=== PATIENT | female | born 2000 | race Two or more races ===

== ENCOUNTER 2024-10-10 15:10 | Emergency (ER) | payer MEDICAID, SELFPAY ==
[2024-10-10 15:12] VITALS: BMI 36.6
[2024-10-10 15:19] VITALS: BP 141/79; PULSE 82; RESP 18; TEMP 37.1; O2SAT 97
--- NOTE | 2024-10-10 15:24 | XR_ITS ---
Examination: CT abdomen with intravenous contrast CT pelvis with intravenous contrast 2-D coronal reconstructions 2-D sagittal reconstructions Date and time of exam:October 10, 2024 1813 hours INDICATIONS: Right lower abdominal pain beginning 2 days ago. CTDI: vol (mGy) 14.8 DLP: (mGycm) 822 Technique: Multiple axial sections of the abdomen and pelvis have been obtained. 64 slice high-resolution scanner used. 3 mm axial sections have been obtained, post intravenous injection 60 cc [id number] 2-D sagittal, coronal reconstructions obtained. Low dose protocols were performed. One or more of the following dose reduction techniques were used; automated exposure control, adjustment of the mA and/or KV according to patient size, use of iterative reconstruction technique. Findings: No focal liver or splenic lesion No gallstones No renal or ureteral calculi, no hydronephrosis Aorta normal size Normal appendix, coronal image 62 No pericecal inflammatory change Mild free fluid in the pelvis with partially involuting 23 mm adnexal cyst Urinary bladder minimal wall thickening No obstruction IMPRESSION: Normal appendix Mild free fluid in the pelvis with partially involuting 23 mm left adnexal cyst, recommend pelvic sonography follow-up
--- NOTE | 2024-10-10 15:24 | PD.EDRME ---
Rapid Medical Screening Exam RME Arrival date/time: 10/10/24 15:10 23-year-old female presents emergency department complaint of abdominal pain patient for she was sent here by PCP to rule out appendicitis Chief Complaint: Abdominal Pain Vital signs: Vital Signs Temperature 98.7 F 10/10/24 15:19 Pulse Rate 82 10/10/24 15:19 Respiratory Rate 18 10/10/24 15:19 Blood Pressure 141/79 H 10/10/24 15:19 Pulse Oximetry (%) 97 10/10/24 15:19 Oxygen Delivery Method Room Air 10/10/24 15:19
[2024-10-10 16:02] LABS: Basophils # (Auto) 0.1 Thou/mm3 (0.0-0.2); Basophils % (Auto) 1 % (0-2.5); Eosinophils # (Auto) 0.1 Thou/mm3 (0.0-0.5); Eosinophils % (Auto) 1 % (0-10); Hematocrit 38.4 % (36.0-46.0); Hemoglobin 12.8 g/dL (12.0-16.0); Immature Granulocytes % (Auto) 0 % (0-0); Immature Granulocytes Auto 0.03 Thou/mm3 (0.00-0.00); Lymphocytes # (Auto) 2.5 Thou/mm3 (1.0-4.8); Lymphocytes % (Auto) 23 % (10-50); Mean Corpuscular HGB Conc 33.3 g/dl (31.0-37.0); Mean Corpuscular Hemoglobin 28.1 pg (25.0-35.0); Mean Corpuscular Volume 84 fL (80-100); Monocytes # (Auto) 0.6 Thou/mm3 (0.0-0.8); Monocytes % (Auto) 5 % (0-12); Neutrophils # (Auto) 7.5 Thou/mm3 (1.8-7.7); Neutrophils % (Auto) 70 % (37-80); Nucleated Red Blood Cell % 0 /100 WBC (0); Platelet Count 256 Thou/mm3 (140-440); RDW Standard Deviation 39.8 fL (36.4-46.3); Red Blood Count 4.56 Miln/mm3 (4.00-5.20); White Blood Count 10.7 Thou/mm3 (3.6-11.0)
[2024-10-10 16:17] LABS: Alanine Aminotransferase 13 U/L (10-49); Albumin, Serum 4.3 gm/dL (3.5-5.0); Albumin/Globulin Ratio 1.3 (1.2-2.2); Alkaline Phosphatase 53 U/L (46-116); Anion Gap 9 (7-16); Aspartate Amino Transferase 21 U/L (0-34); BUN/Creatinine Ratio 15 Ratio (12-20); Bilirubin,Total 0.6 mg/dL (0.3-1.2); Blood Urea Nitrogen 9 mg/dL (9-23); Calcium 8.8 mg/dL (8.3-10.6); Calcium (Corrected) 8.8 mg/dL (8.5-10.1); Carbon Dioxide 24.2 mMol/L (20.0-31.0); Chloride 106 mMol/L (98-107); Creatinine (Component) 0.6 mg/dL (0.6-1.3); Estimated Creatinine Clearance 172.1 mL/min (>60); Globulin 3.4 gm/dL (2.3-3.5); Glucose 86 mg/dL (74-106); Lipase 27 U/L (12-53); Osmolality,Calculated 275 (275-295); Potassium 4.4 mMol/L (3.4-5.1); Sodium 139 mMol/L (136-145); Total Protein 7.7 gm/dL (5.7-8.2); eGFR > 60 See Note
[2024-10-10 16:19] LABS: Collection Type, Urine Clean Catch
[2024-10-10 16:48] LABS: Bilirubin,Urine Negative (Negative); Blood,Urine Negative (Negative); Clarity,Urine Clear (Clear/Hazy); Color,Urine Yellow (Lt Yel-Yel); Culture Indicated,Urine Not Indicated; Glucose, Urine Negative (Negative); Ketones,Urine Negative (Negative); Leukocyte Esterase,Urine Negative (Negative); Nitrite,Urine Negative (Negative); Protein,Urine Trace (Neg - Trace); RBC,Urine 2 /hpf (0-3); Specific Gravity,Urine 1.027 (1.001-1.035); Squamous Epithelial Cell,Urine 7 /hpf (0-5); Urobilinogen,Urine Negative mg/dL (0.0-1.0); WBC,Urine 1 /hpf (0-5)
[2024-10-10 16:51] LABS: HCG Qualitative,Urine Negative
--- NOTE | 2024-11-20 10:55 | PD.EDABDPN ---
ED Abdominal Pain RME/HPI General Chief Complaint: Abdominal Pain Stated complaint: SENT BY PCP R/O APPY N/V/D X2 DAYS Time seen by provider: 10/10/24 15:27 Arrival date/time: 10/10/24 15:10 23-year-old female presents emergency department complaint of abdominal pain patient for she was sent here by PCP to rule out appendicitis Limitations: no limitations RME / HPI RME / HPI narrative: 10/10/24 15:10 23-year-old female presents emergency department complaint of abdominal pain patient for she was sent here by PCP to rule out appendicitis Related Data Previous Rx's ?Medication ?Instructions ?Recorded ibuprofen 800 mg tablet 800 mg PO TID PRN pain #30 tabs 10/10/24 Allergies Allergy/AdvReac Type Severity Reaction Status Date / Time diphenhydramine (From Allergy Verified 11/13/18 23:40 Benadryl) Review of Systems Review of Systems Systems Reviewed: All systems reviewed, normal except as documented Constitutional Constitutional: Reports system reviewed and no additional complaints, except as documented, Denies fever(s) and Denies headache(s) Eyes Eyes: Reports system reviewed and no additional complaints, except as documented and Denies blurry vision ENT Ears, Nose, Mouth, and Throat: Reports system reviewed and no additional complaints, except as documented, Denies headache(s), Denies nasal congestion and Denies nasal discharge Cardiovascular Cardiovascular: Reports system reviewed and no additional complaints, except as documented, Denies chest pain and Denies dyspnea Respiratory Respiratory: Reports system reviewed and no additional complaints, except as documented, Denies chest congestion, Denies cough and Denies dyspnea Gastrointestinal Gastrointestinal: Reports system reviewed and no additional complaints, except as documented and Reports abdominal pain Integumentary/Breasts Skin/Breast: Reports system reviewed and no additional complaints, except as documented and Denies rash Neurologic Neurologic: Reports system reviewed and no additional complaints, except as documented, Reports as per HPI and Denies headache(s) Past Medical History Past Medical History CARDIAC: Negative Cardiac Disorders RESPIRATORY: Positive Asthma GENITOURINARY: Negative Renal Disease ENDOCRINE: Negative Diabetes Mellitus Type 2 HEMATOLOGIC: Negative Sickle Cell Disease Social History SMOKING STATUS: Never smoker ED Exam General Limitations: Present no limitations General appearance: Present alert and in no apparent distress Head Head exam: Present atraumatic, normocephalic and normal inspection Eye Eye exam: Present normal appearance, PERRL and EOMI; Absent conjunctival injection ENT ENT exam: Present normal exam, normal oropharynx and mucous membranes moist Neck Neck exam: Present normal inspection, full ROM and trachea midline Chest Chest inspection: Present normal inspection and symmetric chest wall rise Respiratory Respiratory exam: Present normal lung sounds bilaterally; Absent respiratory distress Cardiovascular Cardiovascular exam: Present regular rate, normal rhythm and normal heart sounds Abdominal Exam Abdominal exam: Present soft and normal bowel sounds; Absent distention, tenderness, guarding, rebound or rigidity Extremities Exam Extremities exam: Present normal inspection and full ROM Back Exam Back exam: Present normal inspection and full ROM Neurological Exam Neurological exam: Present alert, oriented X3 and CN II-XII intact Psychiatric Psychiatric exam: Present normal affect and normal mood Skin Skin exam: Present warm, dry, intact and normal color Course Quality Measures none Orders Category Date Time Status CT Screening NOW Care 10/10/24 15:[address] abdomen pelvis w con Stat Exams 10/10/24 15:24 Completed CBC Stat Lab 10/10/24 15:40 Completed Comprehensive Metabolic Panel Stat Lab 10/10/24 15:40 Completed HCG Qualitative,Urine Stat Lab 10/10/24 15:45 Completed Lipase Stat Lab 10/10/24 15:40 Completed UA, C/S IF [Urinalysis, C/S if Indicated] Stat Lab 10/10/24 15:45 Completed Vital Signs Vital signs: Vital Signs Temperature 98.7 F 10/10/24 15:19 Pulse Rate 82 10/10/24 15:19 Respiratory Rate 18 10/10/24 15:19 Blood Pressure 141/79 H 10/10/24 15:19 Pulse Oximetry (%) 97 10/10/24 15:19 Oxygen Delivery Method Room Air 10/10/24 15:19 O2 saturation 97% room air within normal limits Abdominal Pain MDM MDM Narrative MDM Narrative:: 23-year-old female presents emergency department complaint of abdominal pain patient for she was sent here by PCP to rule out appendicitis On exam patient well-appearing patient does not appear ill or toxic no acute distress Lab work as well as imaging obtained no acute emergent findings noted Incidentally patient noted to have a neck cyst patient instructed to follow-up PCP for further evaluation Patient discharged home in no distress to follow-up with primary care doctor in the next 24 to 48 hours and for any worsening symptoms to return to the ER immediately Patient data External records reviewed:: [facility] previous records Clinical information provided by:: patient Social determinants that could affect healthcare access:: none Patient has the following chronic illnesses:: None How is presenting disease/condition affected by chronic disease/condition?: no chronic disease Evaluation data The following diagnostics were reviewed and interpreted by me:: lab results and radiology exam(s) Lab and/or radiology exams considered but not ordered:: Labs radiology obtain Interpretation Summary: Reviewed by me Medications / Prescriptions Medications or Prescriptions considered but not ordered:: Given Medication administrations:: Given Consultations Consultation(s) initiated? (list below): No Diagnosis Differential diagnosis abdominal pain: abdominal pain, acute appendicitis and pancreatitis Most likely diagnosis given after review of the tests above:: Abdominal pain Admission Indicated Admission indicated?: not indicated Admission Request Was there a request for admission?: No Disposition Plan Disposition Plan: Discharge Discharge Attestation Discharge Attestation: The patient and all family members were given an opportunity to ask questions and understood the discharge instructions. Discharge instructions specifically effects, indications for sooner follow up or return to the emergency department, and the expected course of current diagnosis. Patient condition: Stable Discharge Plan Plan Patient Disposition: HOME (Self Care) Discharge Disposition comment: Stable Prescriptions/Referrals Prescriptions/Med Rec: New ibuprofen 800 mg tablet 800 mg PO TID PRN (Reason: pain) Qty: 30 0RF Referrals: Eddie Bennett MD [Primary Care Provider] - 10/11/24 Problem List Clinical Impression: Adnexal cyst Patient/Caregiver Discharge Instructions Additional Instructions: Please follow up with your primary care doctor in the next 24-48hrs for any worsening symptoms return here immediately Please have outpatient follow-up with pelvic ultrasound Print Language: Swedish Stand Alone Forms: Karma Award Info., Work/School Release, Patient Portal Info Letter PA/SUNITA Supervising Physician CASEY/SUNITA Supervising Physician: Dr. guevara
== END 2024-10-10 19:07 | disposition home or self-care (01) ==
PROVIDERS: Nurse Practitioner Primary Care; Emergency Provider Emergency Medicine; PCP Family Medicine
DX: N94.89 Other specified conditions associated with female genital organs and menstrual cycle (principal)
CPT/HCPCS: 36415; 74177; 80053; 81001; 81025; 83690; 85025; 99285; A4649; Q9967